=== PATIENT | female | born 2000 | race Caucasian/White ===

== ENCOUNTER 2020-10-29 18:34 | Emergency (ER) | payer BC ==
[~2020-10-29] VITALS: Ht 170.2 cm; Wt 64.0 kg
[2020-10-29 18:37] VITALS: BP 129/96
== END 2020-10-29 22:53 | disposition home or self-care (01) ==
LOC: ER 18:35
DX: S00.83XA Contusion of other part of head, initial encounter (principal); F07.81 Postconcussional syndrome; R11.0 Nausea; X58.XXXA Exposure to other specified factors, initial encounter; Y93.89 Activity, other specified; Y92.89 Other specified places as the place of occurrence of the external cause; Y99.8 Other external cause status
CPT/HCPCS: 70450; 70486; 99285